=== PATIENT | female | born 1960 | race African-American/Black ===

== ENCOUNTER → 2019-12-12 | Day surgery (SDC) | payer BC, OTHER ==
[~2019-12-12] MED LIST: ACETAMINOPHEN325 M1 PO; ALLERGY SHOT IM; ASPIRIN81 MG PO; BUPIVACAINE 0.25%/EPI 30ML SDV INJ ONE; CEFAZOLIN SOD 1 GM/NS 50ML 100 ML IV ONE; CLARITIN10 M2 PO; ETOMIDATE 2 MG/ML 10 ML INJ IV ONE; FLONASE ALLERG9.9 ML; KETOROLAC TROMETHAMINE 30 MG/ML VIAL ONE; LYRICA150 MG PO; METHOCARBAMOL750 MG PO; ONDANSETRON HCL INJ 2MG/ML 2ML 2 MG/ML VIAL ONE; PROPOFOL IV EMULSION 10 MG/ML 20 ML VIAL ONE; RESTASIS1 EACH OU; SEVOFLURANE INHAL SOLN 250 ML PEN BTL ONE; VITAMIN D3250 MCG PO
[2019-12-12 10:30] VITALS: BP 116/78
--- NOTE | 2019-12-13 09:27 | Operative Report ---
DATE OF PROCEDURE: 12/12/2019 SURGEON: Paresh Vee MD PREOPERATIVE DIAGNOSES: Left knee medial meniscus tear, left knee lateral meniscus tear, left knee degenerative joint disease of the knee. POSTOPERATIVE DIAGNOSES: Left knee medial meniscus tear, left knee lateral meniscus tear, left knee degenerative joint disease of the knee. OPERATIONS AND PROCEDURES PERFORMED: The patient underwent left knee examination under anesthesia, left knee arthroscopy, left knee partial medial meniscectomy, left knee partial lateral meniscectomy, left knee chondroplasty of the patella, the trochlea, the medial femoral condyle, the medial tibial plateau, the lateral femoral condyle, and lateral tibial plateau. ENTERTAINER & COMIC: There was no driller's assistant. ANESTHESIA: General endotracheal intubation anesthesia. IV FLUIDS: Per the Anesthesia record BRIEF DESCRIPTION OF THE PATIENT'S OPERATIVE PROCEDURE: Ms. Burk was taken to the operating room and placed in supine position on operating table. Following induction of general anesthesia as well as endotracheal intubation, the patient's left lower extremity was examined under anesthesia. She was noted to have a mild effusion within the knee joint, but otherwise ligamentously stable knee. The patient's lower extremity was prepped and draped in standard surgical fashion. A two-port technique used to provide this patient arthroscopic approach to the knee joint. Examination of suprapatellar pouch, medial and lateral gutters found no evidence of loose bodies. There was, however, evidence of chondromalacia of the patella and trochlear surfaces. The scope was advanced to the medial compartment. Examination of medial compartment demonstrated a torn medial meniscus. There was also chondromalacia of the articulating surfaces. A combination of biting forceps and motorized shaver were used to resect the torn portion of meniscus. A chondroplasty of the medial femoral condyle and medial tibial plateau performed at this time. Scope was advanced into the intercondylar notch. The anterior cruciate ligament was identified and found to be intact. Scope was then advanced into the lateral compartment, a macerated lateral meniscus tear was encountered. There was also significant chondromalacia of the femoral and tibial surfaces. A combination of biting forceps and motorized shaver were used to resect the torn portion of meniscus. Chondroplasties of the lateral femoral condyle and lateral tibial plateau performed at this time. Scope was then advanced into suprapatellar pouch and chondroplasties of the patellar and trochlear performed. The knee was then deflated with sterile normal saline. Each of the portal sites were closed using 4-0 nylon suture. The portal sites as well as knee itself were injected with 0.5% Marcaine with epinephrine. Sterile dressings were applied. The patient was awakened to the postanesthesia care unit in stable condition. MD BRYAN Galindo/SHANICE /[id number]
== END | disposition home or self-care (01) ==
LOC: OR 06:49
PROVIDERS: ATTEND Specialist
DX: S83.222A Peripheral tear of medial meniscus, current injury, left knee, initial encounter (principal); S83.262A Peripheral tear of lateral meniscus, current injury, left knee, initial encounter; M22.42 Chondromalacia patellae, left knee; M17.0 Bilateral primary osteoarthritis of knee; G47.33 Obstructive sleep apnea (adult) (pediatric); M32.9 Systemic lupus erythematosus, unspecified; R20.0 Anesthesia of skin; K21.9 Gastro-esophageal reflux disease without esophagitis; Z88.8 Allergy status to other drugs, medicaments and biological substances; Z01.810 Encounter for preprocedural cardiovascular examination; Z01.812 Encounter for preprocedural laboratory examination; Z11.59 Encounter for screening for other viral diseases; M54.9 Dorsalgia, unspecified; Z79.82 Long term (current) use of aspirin; Z68.41 Body mass index [BMI] 40.0-44.9, adult
CPT/HCPCS: 29880; 93005; J0690; J1885; J2405; J2704; U0002

== ENCOUNTER → 2020-08-06 | Outpatient (CLI) | payer BC, OTHER ==
[~2020-08-06] MED LIST changes: -BUPIVACAINE 0.25%/EPI 30ML SDV INJ ONE; -CEFAZOLIN SOD 1 GM/NS 50ML 100 ML IV ONE; +COVID-19 VACC, MRNA(MODERNA)/PF 100 MCG/0.5 ML VIAL IM ONE; -ETOMIDATE 2 MG/ML 10 ML INJ IV ONE; -KETOROLAC TROMETHAMINE 30 MG/ML VIAL ONE; -ONDANSETRON HCL INJ 2MG/ML 2ML 2 MG/ML VIAL ONE; -PROPOFOL IV EMULSION 10 MG/ML 20 ML VIAL ONE; -SEVOFLURANE INHAL SOLN 250 ML PEN BTL ONE
== END | disposition home or self-care (01) ==
LOC: VACCPMC 15:07
DX: Z23 Encounter for immunization (principal); Z20.822 Contact with and (suspected) exposure to COVID-19
CPT/HCPCS: 91301

== ENCOUNTER → 2020-09-03 | Outpatient (CLI) | payer BC, OTHER | END | disposition home or self-care (01) | LOC: VACCPMC 12:17 | DX: Z23 Encounter for immunization (principal); Z20.822 Contact with and (suspected) exposure to COVID-19 | CPT/HCPCS: 91301 ==